=== PATIENT | female | born 1955 | race Caucasian/White ===

== ENCOUNTER → 2016-09-09 | Day surgery (SDC) | payer BC ==
[2016-08-31 15:47] VITALS: BMI 25.0
[~2016-09-09] VITALS: Ht 149.9 cm; Wt 59.1 kg
[~2016-09-09] MED LIST: ACET-1256 PO; ASPI81TA28 PO; ATOR-54 PO; CALC-279 PO; CRAN500C2 PO; DICY20TA10 PO; FLUT0.15 NAE; LIDOCAINE HCL 2% 2 ML VIAL (20MG/ML) ONE; MISCCAP80 PO; MULT-506 PO; PANT40TA PO; PROPOFOL IV EMULSION 10 MG/ML 20 ML VIAL IV ONE; PSYL48.59 PO; RANI300T2 PO; UBIQ1CAP8 PO
[2016-09-09 11:14] VITALS: Ht 149.9 cm; Wt 59.1 kg
--- NOTE | 2016-09-09 11:48 | Endo History and Physical ---
History & Physical Date of Service: Sep 09, 2016. Chief Complaint: GASTRIC REFLUX AND ABDOMINAL PAIN Referring Physician: OLEGARIO ANAYA History of Present Illness 61 yo CF who presents for EGD secondary to GERD and Abdominal pain. Past Medical History Osteoporosis, Gastrointestinal Disorder, Anxiety, Reflux, High Cholesterol, Other, Depression Past Surgical History Hx Cardiac Surgery: No Hx Internal Defibrillator: No Hx Pacemaker: No Hx Abdominal Surgery: Yes (TUBAL LIGATION) Hx of Implantable Prosthesis: No Hx Post-Op Nausea and Vomiting: No Hx Cancer Surgery: No Hx Thoracic Surgery: No Hx Orthopedic: No Hx Urinary Tract Surgery: No Family History Polyp Social History Smoking Status: Former Smoker Hx Substance Use: No Hx Alcohol Use: Yes (OCCASIONAL) Allergies Uncoded Allergies: IODINE (Allergy, Unknown, HIVES, 09/09/16) Current Medications Reported Home Medications Medications Dose Route/Sig Max Daily Dose Days Date Category Metamucil (Psyllium) 48.57 % Pow 1 Dose PO QPM 08/31/16 Reported Dicyclomine Hcl 20 Mg Tab 1 Tab PO BID PRN 08/31/16 Reported Ubiquinol 100 Mg Cap 1 Cap PO QAM 03/02/16 Reported Probiotic (Probiotic Product) 1 Cap Cap 1 Cap PO QPM 03/02/16 Reported Multivitamin (Multivitamins) Tab 1 Tab PO QPM 03/02/16 Reported Cranberry (Cranberry (Vaccinium Macrocarp) 500 Mg Cap 1 Cap PO QPM 03/02/16 Reported Calcium Citrate + D (Calcium Citrate-Vitamin D) 1 Tab Tab 1 Tab PO QPM 03/02/16 Reported Aspirin Ec (Aspirin) 81 Mg Tab 81 Mg PO QAM 03/02/16 Reported Tylenol (Acetaminophen) 500 Mg Tab 1,000 Mg PO DAILY PRN 03/02/16 Reported Zantac (Ranitidine HCl) 300 Mg Tab 300 Mg PO QAM 03/02/16 Reported Protonix (Pantoprazole Sodium) 40 Mg Tab 40 Mg PO QAM 03/02/16 Reported Flonase Allergy Relief (Fluticasone Propionate (Nasal)) 50 Mcg/Act Spr 1 [place] PEE QPM 03/02/16 Reported Lipitor (Atorvastatin) 20 Mg Tab 20 Mg PO QPM 11/30/14 Reported Vital Signs Weight (Kilograms): 59.09 Height (Feet): 4 Height (Inches): 11 Date Time Temp Pulse Resp B/P Pulse Ox O2 Delivery O2 Flow Rate FiO2 09/09/16 11:21 36.5 80 20 183/86 98 Room Air Physical Exam General Appearance: WD/WN, no apparent distress Respiratory/Chest: Auscultation: breath sounds normal Cardiovascular: Heart Auscultation: RRR Abdomen: Bowel Sounds: normal Inspection & Palpation: soft, non-distended, no tenderness, guarding & rebound Assessment and Plan Assessment: 61 yo CF who presents for EGD secondary to GERD and Abdominal pain. Plan: Proceed with EGD.
--- NOTE | 2016-09-09 12:06 | Discharge Instructions ---
Endoscopy Patient Instructions Date / Procedure(s) Performed Sep 09, 2016. EGD Allergy Information Uncoded Allergies: IODINE (Allergy, Unknown, HIVES, 09/09/16) Discharge Date / Findings Sep 09, 2016. Erosive gastritis s/p biopsies Hiatal hernia Medication Instructions OK to resume all medications today as prescribed. Reported Home Medications Medications Dose Route/Sig Max Daily Dose Days Date Category Metamucil (Psyllium) 48.57 % Pow 1 Dose PO QPM 08/31/16 Reported Dicyclomine Hcl 20 Mg Tab 1 Tab PO BID PRN 08/31/16 Reported Ubiquinol 100 Mg Cap 1 Cap PO QAM 03/02/16 Reported Probiotic (Probiotic Product) 1 Cap Cap 1 Cap PO QPM 03/02/16 Reported Multivitamin (Multivitamins) Tab 1 Tab PO QPM 03/02/16 Reported Cranberry (Cranberry (Vaccinium Macrocarp) 500 Mg Cap 1 Cap PO QPM 03/02/16 Reported Calcium Citrate + D (Calcium Citrate-Vitamin D) 1 Tab Tab 1 Tab PO QPM 03/02/16 Reported Aspirin Ec (Aspirin) 81 Mg Tab 81 Mg PO QAM 03/02/16 Reported Tylenol (Acetaminophen) 500 Mg Tab 1,000 Mg PO DAILY PRN 03/02/16 Reported Zantac (Ranitidine HCl) 300 Mg Tab 300 Mg PO QAM 03/02/16 Reported Protonix (Pantoprazole Sodium) 40 Mg Tab 40 Mg PO QAM 03/02/16 Reported Flonase Allergy Relief (Fluticasone Propionate (Nasal)) 50 Mcg/Act Spr 1 [place] PEE QPM 03/02/16 Reported Lipitor (Atorvastatin) 20 Mg Tab 20 Mg PO QPM 11/30/14 Reported Provider Instructions Activity Restrictions - No exercising or heavy lifting for 24 hours. - Do not drink alcohol the day of the procedure. - Do not drive a car or operate machinery until the day after the procedure. - Do not make any important decisions or sign important papers in 24 hours after the procedure. Following Day: - Return to full activity which may include returning to work/school. Diet Start your diet with liquids and light foods (jello, soup, juice, toast). Then eat your usual diet if not nauseated. Treatment For Common After Affects For mild abdominal pain, bloating, or excessive gas: - Rest - Eat lightly - Lie on right side Follow-Up Information Follow-up with OLEGARIO ANAYA as scheduled Anesthesia Information What You Should Know You have had a procedure that required some medicine to reduce anxiety and discomfort. This treatment is called moderate sedation. After receiving the treatment, you may be sleepy, but you will be able to breathe on your own. The effects of the treatment may last for several hours. Follow these instructions along with Activity/Diet recommendations noted above: * Do NOT do anything where dizziness or clumsiness would be dangerous. * Rest quietly at home today, then you can be up and about tomorrow. * Have a responsible person stay with you the rest of today. * You may have had an I.V. today. If so, you may take the dressing off later today. Recommendations Call your doctor if: * Trouble breathing * Continuous vomiting for more than 24 hours * Temperature above 101 degrees * Severe abdominal pain or bloating * Pain not relieved by pain medicine ordered * There is increased drainage or redness from any incision * A large amount of rectal bleeding greater than 2-3 tablespoons. (If you had a polyp/s removed or have hemorrhoids, a small amount of blood - from the rectum is to be expected.) * You have any unanswered questions or concerns. IN THE EVENT OF A SERIOUS EMERGENCY, GO TO THE NEAREST EMERGENCY ROOM Your discharge instructions were prepared by provider Sage Gallegos. Patient Instructions Signature Page Ni Evans Patient (or Guardian) Signature/Date: I have read and understand the instructions given to me by my caregivers. Caregiver/RN/Doctor Signature/Date: The above-named patient and/or guardian has received patient instructions on this date. + Original Patient Signature Page (only) stays with chart. Please make copy for patient.
--- NOTE | 2016-09-09 12:24 | GI REPORT ---
Procedure Date: 09/09/2016 11:47 AM Procedure: Upper GI endoscopy Indications: Epigastric abdominal pain, Suspected gastro-esophageal reflux disease Medicines: Monitored Anesthesia Care Complications: No immediate complications. Estimated Blood Loss: Estimated blood loss: none. Procedure: Pre-Anesthesia Assessment: - Prior to the procedure, a History and Physical was performed, and patient medications and allergies were reviewed. The patient's tolerance of previous anesthesia was also reviewed. The risks and benefits of the procedure and the sedation options and risks were discussed with the patient. All questions were answered, and informed consent was obtained. Prior Anticoagulants: The patient has taken no previous anticoagulant or antiplatelet agents. ASA Grade Assessment: II - A patient with mild systemic disease. After reviewing the risks and benefits, the patient was deemed in satisfactory condition to undergo the procedure. After obtaining informed consent, the endoscope was passed under direct vision. Throughout the procedure, the patient's blood pressure, pulse, and oxygen saturations were monitored continuously. The scope was introduced through the mouth, and advanced to the second part of duodenum. The upper GI endoscopy was accomplished without difficulty. The patient tolerated the procedure well. Findings: The esophagus was normal. A small hiatus hernia was present. Localized moderate inflammation characterized by erosions was found in the gastric antrum. Biopsies were taken with a cold forceps for histology. One non-bleeding superficial duodenal ulcer with no stigmata of bleeding was found in the first part of the duodenum. The lesion was 3 mm in largest dimension. Impression: - Normal esophagus. - Small hiatus hernia. - Gastritis. Biopsied. - One non-bleeding duodenal ulcer with no stigmata of bleeding. Recommendation: - Resume previous diet. - Continue present medications. - Await pathology results. - Return to GI clinic as previously scheduled. Sage Gallegos DO 09/09/2016 12:24:50 PM This report has been signed electronically. Note Initiated On: 09/09/2016 11:47 AM
[2016-09-09 12:39] VITALS: BP 147/69; PULSE 68; O2SAT 98
--- NOTE | 2016-09-09 13:15 | Anesthesiology Progress Note ---
Anesthesia Post Op Note Date & Time Sep 09, 2016 at 13:16 Vital Signs Pain Intensity: 0 Vital Signs Past 12 Hours Date Time Temp Pulse Resp B/P Pulse Ox O2 Delivery O2 Flow Rate FiO2 09/09/16 12:39 68 18 147/69 98 Room Air 09/09/16 12:24 67 18 135/66 97 Room Air 09/09/16 12:09 78 18 127/60 96 Room Air 09/09/16 11:21 36.5 80 20 183/86 98 Room Air Notes Mental Status: alert / awake / arousable, participated in evaluation Pt Amnestic to Procedure: Yes Nausea / Vomiting: adequately controlled Pain: adequately controlled Airway Patency, RR, SpO2: stable & adequate BP & HR: stable & adequate Hydration State: stable & adequate Anesthetic Complications: no major complications apparent
== END | disposition home or self-care (01) ==
LOC: C.GI 10:59
PROVIDERS: ATTEND Internal Medicine
DX: K29.70 Gastritis, unspecified, without bleeding (principal); K21.9 Gastro-esophageal reflux disease without esophagitis; K26.9 Duodenal ulcer, unspecified as acute or chronic, without hemorrhage or perforation; K44.9 Diaphragmatic hernia without obstruction or gangrene; K31.89 Other diseases of stomach and duodenum; Z79.82 Long term (current) use of aspirin; M81.0 Age-related osteoporosis without current pathological fracture; F41.9 Anxiety disorder, unspecified; E78.5 Hyperlipidemia, unspecified; F32.9 Major depressive disorder, single episode, unspecified; Z98.51 Tubal ligation status; Z91.041 Radiographic dye allergy status

== ENCOUNTER → 2016-11-25 | Outpatient (CLI) | payer BC ==
[~2016-11-25] MED LIST changes: -LIDOCAINE HCL 2% 2 ML VIAL (20MG/ML) ONE; -PROPOFOL IV EMULSION 10 MG/ML 20 ML VIAL IV ONE
== END | disposition home or self-care (01) ==
LOC: C.PAPS 16:07
PROVIDERS: ATTEND Obstetrics & Gynecology
DX: Z01.419 Encounter for gynecological examination (general) (routine) without abnormal findings (principal)

== ENCOUNTER → 2017-07-27 | Outpatient (CLI) | payer BC ==
--- NOTE | 2017-07-28 14:11 | MAMMOGRAPHY REPORT ---
BILATERAL DIGITAL SCREENING MAMMOGRAM TOMOSYNTHESIS WITH CAD: 07/27/2017 CLINICAL HISTORY: Routine screening. Patient has no complaints. TECHNIQUE: Breast tomosynthesis in addition to standard 2D mammography was performed. Current study was also evaluated with a Computer Aided Detection (CAD) system. COMPARISON: Comparison is made to exams dated: 07/24/2016 mammogram, 07/22/2015 mammogram, 07/17/2014 mammogram, 07/11/2013 mammogram, 07/05/2012 mammogram, and 06/29/2011 mammogram - [facility]. BREAST COMPOSITION: There are scattered areas of fibroglandular density in both breasts. FINDINGS: The parenchymal pattern is unchanged. No developing mass, architectural distortion or clus ter of suspicious microcalcifications is seen in either breast. IMPRESSION: ACR BI-RADS CATEGORY 2: BENIGN There is no mammographic evidence of malignancy. A 1 year screening mammogram is recommended. The pa tient will receive written notification of the results. Approximately 10% of breast cancers are not detected with mammography. A negative mammographic report should not delay biopsy if a clinically suggestive mass is present. Eula Rivas M.D. ay/:07/27/2017 15:29:55 Prep Room Supervisor: Ni GUAMAN(R)(M), [facility] letter sent: Normal 1/2 BI-RADS Code: ACR BI-RADS Category 2: Benign
== END | disposition home or self-care (01) ==
LOC: C.MAMM 09:03
PROVIDERS: ATTEND Obstetrics & Gynecology
DX: Z12.31 Encounter for screening mammogram for malignant neoplasm of breast (principal)

== ENCOUNTER → 2017-11-17 | Outpatient (CLI) | payer OTHER ==
--- NOTE | 2017-11-17 15:39 | DIAGNOSTIC IMAGING REPORT ---
FUSION CT SINUSES W/O HISTORY: 62 years-old Female J30.9 acute allergic rhinitis COMPARISON: CT soft tissue neck of same day TECHNIQUE: Multiple axial CT images of the paranasal sinuses were obtained without IV contrast. [employer] axial images were also obtained. A dose lowering technique was used consistent with the principals of ROSS. FINDINGS: Calcifications of the falx cerebri. No acute intracranial abnormality identified. Ill-defined areas of low-attenuation within the subcortical and periventricular white matter suggest chronic microvascular ischemic changes. Cerebral vascular calcifications are seen at the level of the skull base. Mastoid air cells and middle ear cavities are clear. Moderate to severe left and moderate right mucosal thickening of the maxillary sinuses with aerated secretions. Mild mucosal thickening of the left maxillary sinus with severe mucosal thickening on the right, nearly completely opacified. Moderate mucosal thickening of the bilateral ethmoid air cells. Moderate right and mild left sphenoid sinus disease with bubbly secretions seen on the right. The left sphenoethmoidal recess is patent. There is mild mucosal thickening of the right sphenoethmoidal recess. Moderate mucosal thickening of the left frontoethmoidal recess. The right frontoethmoidal recess is opacified. Partial opacification of the bilateral maxillary ostemia units. No Milvia cell identified. Prominent damian frederick. Moderate mucosal thickening of the nasal turbinates without large amado bullosa. Sigmoidal bowing and spurring of the nasal septum. No focal soft tissue abnormality. Orbits are within normal limits. IMPRESSION: 1. Paranasal sinus disease as above with mucosal thickening of the bilateral maxillary ostiomeatal units. 2. Severe right frontal sinus disease with opacified right frontal ethmoidal recess. 3. Sigmoidal bowing and spurring of the nasal septum. The above report was generated using voice recognition software. It may contain grammatical, syntax or spelling errors. Electronically signed by: Kendrick Bailey M.D. 11/17/2017 3:37 PM Dictated Date/Time: 11/17/2017 3:30 PM
--- NOTE | 2017-11-17 15:49 | DIAGNOSTIC IMAGING REPORT ---
SOFT TISSUE NECK WITHOUT HISTORY: 62 years-old Female J30.9 acute lymphadenopathy. History of allergic rhinitis. COMPARISON: CT sinus study of same day TECHNIQUE: Multiple axial CT images of the soft tissues of the neck were obtained without the use of IV contrast. A dose lowering technique was used consistent with the principals of ROSS. FINDINGS: Evaluation for adenopathy is limited without the use of IV contrast. There is a few millimeters anterolisthesis C4 on C5 and C5 on C6 which is likely degenerative in nature. Mild multilevel facet arthrosis and uncovertebral spurring. Image intracranial structures demonstrate no acute abnormality. Paranasal sinus disease as discussed on comparison CT sinus study of same day. Evaluation of the oral pharynx is limited secondary to streak artifact from dental amalgam hardware. The parotid, submandibular and sublingual glands appear unremarkable. Mildly heterogeneous and prominent thyroid without discrete dominant nodules identified. Normal-appearing level 2 lymph nodes are seen bilaterally measuring up to 6 mm in short axis. No pathologically enlarged lymph nodes by CT size criteria. Calcified granuloma of the apical posterior segment left upper lobe, pleural-based. No pneumothorax. Mild biapical pleural-parenchymal scarring. Minimal atherosclerosis of the bilateral carotid ball. Airway appears patent and within normal limits. Epiglottis and aryepiglottic folds are within normal limits. The glottis and subglottic airway are unremarkable. IMPRESSION: 1. No pathologic adenopathy identified. 2. No inflammatory changes or focal soft tissue abnormality identified within the neck. 3. Mildly enlarged and heterogeneous appearance of the thyroid. 4. Paranasal sinus disease, better assessed and described on CT sinus study of same day. The above report was generated using voice recognition software. It may contain grammatical, syntax or spelling errors. Electronically signed by: Kendrick Bailey M.D. 11/17/2017 3:48 PM Dictated Date/Time: 11/17/2017 3:41 PM
== END | disposition home or self-care (01) ==
LOC: C.CTS 15:10
DX: J32.1 Chronic frontal sinusitis (principal); J34.2 Deviated nasal septum; J30.9 Allergic rhinitis, unspecified; R59.0 Localized enlarged lymph nodes

== ENCOUNTER → 2018-03-31 | Outpatient (CLI) | payer OTHER ==
[~2018-03-31] MED LIST changes: -ASPI81TA28 PO; +CLR10 PO; -DICY20TA10 PO; +FIBER TABS PO; -FLUT0.15 NAE; -MISCCAP80 PO; -PANT40TA PO; -RANI300T2 PO
== END | disposition home or self-care (01) ==
LOC: C.PAPS 18:27
PROVIDERS: ATTEND Obstetrics & Gynecology
DX: Z12.4 Encounter for screening for malignant neoplasm of cervix (principal)